=== PATIENT | male | born 2000 | race Two or more races ===

== ENCOUNTER 2022-07-08 23:06 | Emergency (ER) | payer BC ==
[2022-07-09] MEDS ORDERED: Ibuprofen 600 MG Tab PO ONE (00:50)
[2022-07-09] MEDS ORDERED: Cyclobenzaprine 10 MG Tab PO ONE (00:50)
[2022-07-09] MEDS ORDERED: oxyCODONE 5 MG Tab PO ONE (00:50)
== END 2022-07-09 02:16 | disposition home or self-care (01) ==
LOC: MW.ED 23:06
DX: S39.92XA Unspecified injury of lower back, initial encounter (principal); Z88.8 Allergy status to other drugs, medicaments and biological substances; W00.0XXA Fall on same level due to ice and snow, initial encounter
CPT/HCPCS: 72100; 72220; 99283; A9270